=== PATIENT | female | born 1960 | race Caucasian/White ===

== ENCOUNTER 2022-08-12 11:26 | Day surgery (SDC) | payer BC ==
[~2022-08-12 11:26] MED LIST: Propofol 200 MG/20 ML SDV ONE; Sodium Chloride 0.9% 10 ML Syringe FLUSH PRN
[2022-08-12] MEDS: Lactated Ringers 1,000 ML IV SCH (11:58)
[2022-08-12] MEDS ORDERED: Propofol 200 MG/20 ML SDV ONE (13:08)
[2022-08-12 16:40] VITALS: BP 133/68; PULSE 70
== END 2022-08-12 13:55 | disposition home or self-care (01) ==
LOC: LL.SDS 11:26
PROVIDERS: ATTEND Surgery
DX: Z12.11 Encounter for screening for malignant neoplasm of colon (principal); Z88.1 Allergy status to other antibiotic agents; Z88.8 Allergy status to other drugs, medicaments and biological substances
CPT/HCPCS: J2704; J7120